=== PATIENT | female | born 1995 | race African-American/Black ===

== ENCOUNTER 2018-07-16 06:13 | Emergency (ER) | payer OTHER ==
[2018-07-16] MEDS ORDERED: MORPHINE 2 MG/ML SYR ONE (06:54)
[2018-07-16] MEDS ORDERED: ONDANSETRON 4 MG/2 ML VIAL ONE (06:54)
[2018-07-16 07:08] LABS: Absolute Lymphocytes (CBC) 1.2 K/uL (0.7-4.9); Absolute Monocytes 1.5 K/uL (0.1-1.3); Absolute Neutrophil 13.4 K/uL (1.8-8.0); Basophils % 0.3 % (0-1.3); Eosinophils % 0.1 % (0-4.4); Hematocrit 39.7 % (36.0-45.0); Lymphocytes % 7.6 % (15.3-44.8); MPV 8.2 fL (7.6-11.3); Monocytes % 9.3 % (3.3-12.3); RBC Red Blood Cell Count 4.54 M/uL (3.86-4.86)
[2018-07-16 07:18] LABS: ALT/SGPT 17 U/L (12-78); AST/SGOT 14 U/L (15-37); Albumin 3.8 g/dL (3.4-5.0); Alkaline Phosphatase 63 U/L (45-117); BUN Blood Urea Nitrogen 7 mg/dL (7-18); Bicarbonate 24 mmol/L (21-32); Bilirubin Direct 0.1 mg/dL (0-0.2); Bilirubin Total 0.4 mg/dL (0.2-1.0); Glucose Level 113 mg/dL (74-106); Lipase 54 U/L (73-393); Potassium 3.7 mmol/L (3.5-5.1); Protein, Total 7.8 g/dL (6.4-8.2); Sodium Level 138 mmol/L (136-145)
--- NOTE | 2018-07-16 08:32 | RAD REPORT ---
EXAM DESCRIPTION: CTAbdomen Pelvis W Contrast - 07/16/2018 8:23 am CLINICAL HISTORY: Abdominal pain. abdominal pain, IV ONLY COMPARISON: No comparisons TECHNIQUE: Biphasic CT imaging of the abdomen and pelvis was performed with 100 ml non-ionic IV cont rast. All CT scans are performed using dose optimization technique as appropriate and may include automated exposure control or mA/KV adjustment according to patient size. FINDINGS: The lung bases are clear. The liver, spleen, pancreas, adrenal glands and kidneys are within normal limits. No bowel obstruction, free air, free fluid or abscess. Few mildly thickened small bowel loops are not ed in the central abdomen. The appendix is normal. No evidence of significant lymphadenopathy. No suspicious bony findings. IMPRESSION: A few mildly thickened small bowel loops in the central abdomen suggests enteritis. Othe rwise, no acute abnormality is seen.
--- NOTE | 2018-07-16 08:53 | ER ---
Nurse's Notes [facility] Name: Rani Bautista Age: 23 yrs Sex: Female : 1995 Arrival Date: 07/16/2018 Time: :19 Bed 13 Private MD: Diagnosis: Unspecified abdominal pain;Urinary tract infection, site not specified Presentation: 07/16 06:29 Presenting complaint: Patient states: right lower abd pain and SOB with lying down ak1 since yesterday. pt denies N/V/D. Transition of care: patient was not received from another setting of care. Onset of symptoms was July 15, 2018. Risk Assessment: Do you want to hurt yourself or someone else? Patient reports no desire to harm self or others. Initial Sepsis Screen: Does the patient meet any 2 criteria? No. Patient's initial sepsis screen is negative. Does the patient have a suspected source of infection? No. Patient's initial sepsis screen is negative. Care prior to arrival: None. 06:29 Method Of Arrival: Ambulatory ak1 06:29 Acuity: DIAMOND 3 ak1 Triage Assessment: 06:30 General: Appears uncomfortable, slender, Behavior is calm, cooperative. Pain: Complains ak1 of pain in abdomen. EENT: No signs and/or symptoms were reported regarding the EENT system. Neuro: No deficits noted. Cardiovascular: No deficits noted. Respiratory: No deficits noted. GI: Abdomen is round. : No signs and/or symptoms were reported regarding the genitourinary system. Derm: No signs and/or symptoms reported regarding the dermatologic system. Musculoskeletal: No signs and/or symptoms reported regarding the musculoskeletal system. 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 - Social history:: Smoking status: Patient uses tobacco products, smokes one-half pack cigarettes per day. - Ebola Screening: : No symptoms or risks identified at this time. Screenin:31 Abuse screen: Denies threats or abuse. Denies injuries from another. Nutritional ak1 screening: No deficits noted. Tuberculosis screening: No symptoms or risk factors identified. Fall Risk None identified. Assessment: 06:32 Reassessment: Patient appears in no apparent distress at this time. No changes from ak1 previously documented assessment. see triage assessment. 06:32 GI: Bowel sounds present X 4 quads. Abdomen is tender to palpation X 4 quads. ak1 07:00 General: Appears in no apparent distress. comfortable, Behavior is calm, cooperative. rb1 Pain: Complains of pain in abdomen Pain currently is 7 out of 10 on a pain scale. 07:00 Neuro: Level of Consciousness is awake, alert, obeys commands, Oriented to person, rb1 place, time, situation. Cardiovascular: Capillary refill < 3 seconds is brisk in bilateral fingers. Respiratory: Airway is patent Respiratory effort is even, unlabored, Respiratory pattern is regular, symmetrical. GI: Bowel sounds present X 4 quads. : No signs and/or symptoms were reported regarding the genitourinary system. Derm: Skin is dry, Skin is normal, Skin temperature is warm. 08:00 Reassessment: Patient appears in no apparent distress at this time. Patient and/or rb1 family updated on plan of care and expected duration. Pain level reassessed. Patient is alert, oriented x 3, equal unlabored respirations, skin warm/dry/pink. Friend at bedside. 09:00 Reassessment: Patient appears in no apparent distress at this time. No changes from rb1 previously documented assessment. Pain 5/10. Vital Signs: 06:30 BP 127 / 71; Pulse 104; Resp 18; Temp 99.1(O); Pulse Ox 99% on R/A; Weight 56.7 kg (R); ak1 Height 5 ft. 2 in. (157.48 cm) (R); Pain 10/10; 07:00 BP 123 / 77; Pulse 81; Resp 19; Pulse Ox 100% on R/A; rb1 08:00 BP 123 / 74; Pulse 63; Resp 15; Pulse Ox 100% on R/A; rb1 09:00 BP 101 / 56; Pulse 64; Resp 17; Pulse Ox 99% on R/A; rb1 06:30 Body Mass Index 22.86 (56.70 kg, 157.48 cm) ak1 ED Course: 06:19 Patient arrived in ED. es 06:23 Debra Alexander, RN is Primary Nurse. ak1 06:24 Mickail, Víctor, PA is PHCP. [facility] 06:24 Oliverio Huertas MD is Attending Physician. [facility] 06:30 Triage completed. ak1 06:30 Arm band placed on Patient placed in an exam room, on a stretcher, on pulse oximetry, ak1 Patient notified of wait time. 06:31 Patient has correct armband on for positive identification. Bed in low position. Call ak1 light in reach. Side rails up X 1. Pulse ox on. NIBP on. 06:53 Initial lab(s) drawn, by me, sent to lab. Urine collected: clean catch specimen, clear, ak1 sent to lab. Inserted saline lock: 20 gauge in right antecubital area, using aseptic technique. Blood collected. 08:23 CT completed. Patient tolerated procedure well. Patient moved to CT via wheelchair. Patient moved back from CT. 08:24 CT Abd/Pelvis - W/Contrast In Process Unspecified. EDMS 09:05 No provider procedures requiring assistance completed. IV discontinued, intact, rb1 bleeding controlled, No redness/swelling at site. Pressure dressing applied. Administered Medications: 06:52 Drug: morphine 2 mg Route: IVP; Site: right antecubital; ak1 06:55 Follow up: Response: No adverse reaction ak1 06:52 Drug: Zofran 4 mg Route: IVP; Site: right antecubital; ak1 06:54 Follow up: Response: No adverse reaction ak1 Outcome: 08:52 Discharge ordered by . [facility] 09:05 Discharged to home ambulatory, with friend. rb1 09:05 Condition: stable 09:05 Discharge instructions given to patient, Instructed on discharge instructions, follow up and referral plans. medication usage, Demonstrated understanding of instructions, follow-up care, medications, Prescriptions given X 4. 09:06 Patient left the ED. rb1 Signatures: Dispatcher [employer] EDMS Víctor Ulloa PA PA [facility] Pascale Thomas Susan sj Krenek, Amber RN RN ak1 Carol Kang, RN RN rb1 Corrections: (The following items were deleted from the chart) 07:34 07:00 Pain: Complains of pain in abdomen rb1 rb1
--- NOTE | 2018-07-16 08:53 | EDPHYS ---
Physician Documentation [facility] Name: Rani Bautista Age: 23 yrs Sex: Female : 1995 Arrival Date: 07/16/2018 Time: 06:19 Bed 13 Private MD: ED Physician Oliverio Huertas HPI: 07/16 06:37 This 23 yrs old Black Female presents to ER via Ambulatory with complaints of Abdominal jmm Pain, Flank Pain, Shoulder Pain, Breathing Difficulty. 06:37 The patient presents with abdominal pain that is diffuse. Onset: The symptoms/episode jmm began/occurred gradually, yesterday. The symptoms do not radiate. Associated signs and symptoms: Pertinent negatives: fever, vomiting. This is a 23 year old female with no chronic medical conditions that presents to the ED with generalized abdominal pain, right flank pain. Denies fever, denies vomiting, diarrhea. Denies recent travel. . 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 - Social history:: Smoking status: Patient uses tobacco products, smokes one-half pack cigarettes per day. - Ebola Screening: : No symptoms or risks identified at this time. ROS: 06:37 Constitutional: Negative for fever, chills, and weight loss, Cardiovascular: Negative jmm for chest pain, palpitations, and edema, Respiratory: Negative for shortness of breath, cough, wheezing, and pleuritic chest pain. 06:37 Abdomen/GI: Positive for abdominal pain. 06:37 Back: Positive for flank pain, on the right. 06:37 All other systems are negative. Exam: 06:37 Constitutional: This is a well developed, well nourished patient who is awake, alert, jmm and in no acute distress. Head/Face: atraumatic. Eyes: EOMI, no conjunctival erythema appreciated ENT: Moist Mucus Membranes Neck: Trachea midline, Supple Chest/axilla: Normal chest wall appearance and motion. Cardiovascular: Regular rate and rhythm. No edema appreciated Respiratory: Normal respirations, no respiratory distress appreciated 06:37 Skin: General appearance color normal MS/ Extremity: Moves all extremities, no obvious deformities appreciated, no edema noted to the lower extremities Neuro: Awake and alert, normal gait Psych: Behavior is normal, Mood is normal, Patient is cooperative and pleasant 06:37 Abdomen/GI: Inspection: abdomen appears normal, Bowel sounds: normal, Palpation: soft, moderate abdominal tenderness, in all quadrants. 06:37 Back: ROM is normal. 06:37 : CVA tenderness, on the right. Vital Signs: 06:30 BP 127 / 71; Pulse 104; Resp 18; Temp 99.1(O); Pulse Ox 99% on R/A; Weight 56.7 kg (R); ak1 Height 5 ft. 2 in. (157.48 cm) (R); Pain 10/10; 07:00 BP 123 / 77; Pulse 81; Resp 19; Pulse Ox 100% on R/A; rb1 08:00 BP 123 / 74; Pulse 63; Resp 15; Pulse Ox 100% on R/A; rb1 09:00 BP 101 / 56; Pulse 64; Resp 17; Pulse Ox 99% on R/A; rb1 06:30 Body Mass Index 22.86 (56.70 kg, 157.48 cm) ak1 MDM: 06:26 Patient medically screened. [facility] 08:51 Data reviewed: vital signs, nurses notes, lab test result(s), radiologic studies, CT [facility] scan. Counseling: I had a detailed discussion with the patient and/or guardian regarding: the historical points, exam findings, and any diagnostic results supporting the discharge/admit diagnosis, lab results, radiology results, the need for outpatient follow up, to return to the emergency department if symptoms worsen or persist or if there are any questions or concerns that arise at home. ED course: Patient is alert and non toxic in appearance in the ED. CT reviewed. Patient given early appendicitis return precautions. Patient understood and agrees with the plan of care. . 07/16 06:46 Order name: Urine Dipstick--Ancillary (enter results) [facility] 07/16 06:35 Order name: CT Abd/Pelvis - W/Contrast; Complete Time: 08:36 [facility] 07/16 06:46 Order name: Urine --Ancillary (enter results) [facility] 07/16 06:54 Order name: Urine Microscopic Only [facility] 07/16 06:58 Order name: Basic Metabolic Panel; Complete Time: 07:26 [facility] 07/16 06:58 Order name: Liver (Hepatic) Function; Complete Time: 07:26 [facility] 07/16 06:58 Order name: Lipase; Complete Time: 07:26 [facility] 07/16 06:58 Order name: CBC with Automated Diff; Complete Time: 07:14 [facility] 07/16 06:34 Order name: IV Saline Lock; Complete Time: 06:52 [facility] 07/16 06:34 Order name: Labs collected and sent; Complete Time: 06:52 [facility] 07/16 06:34 Order name: Urine Dipstick-Ancillary (obtain specimen); Complete Time: 06:41 [facility] 07/16 06:34 Order name: Urine Test (obtain specimen); Complete Time: 06:41 [facility] Administered Medications: 06:52 Drug: morphine 2 mg Route: IVP; Site: right antecubital; ak1 06:55 Follow up: Response: No adverse reaction ak1 06:52 Drug: Zofran 4 mg Route: IVP; Site: right antecubital; ak1 06:54 Follow up: Response: No adverse reaction ak1 Disposition: 07/16/18 08:52 Discharged to Home. Impression: Unspecified abdominal pain, Urinary tract infection, site not specified. - Condition is Stable. - Discharge Instructions: Abdominal Pain, Adult. - Prescriptions for Zofran ODT 4 mg Oral tablet,disintegrating - place 1 tablet by TRANSLINGUAL route every 4 hours; 20 tablet. Bentyl 20 mg Oral Tablet - take 1 tablet by ORAL route every 6 hours As needed; 20 tablet. Keflex 500 mg Oral Capsule - take 1 capsule by ORAL route every 12 hours for 10 days; 20 capsule. Ultracet 37.5- 325 mg Oral Tablet - take 1 tablet by ORAL route every 6 hours - for up to 5 days; do not exceed 8 tablets per day.; 12 tablet. - Medication Reconciliation Form, Thank You Letter, Antibiotic Education, Prescription Opioid Use form. - Follow up: Private Physician; When: 2 - 3 days; Reason: Recheck today's complaints, Continuance of care, Re-evaluation by your physician. Signatures: Dispatcher [facility] V[facility]ctor Ulloa PA PA jmm Krenek, Amber RN RN ak1 Carol Kang, RN RN rb1 Corrections: (The following items were deleted from the chart) 08:53 08:52 07/16/2018 08:52 Discharged to Home. Impression: Unspecified abdominal pain. [facility] Condition is Stable. Forms are Medication Reconciliation Form, Thank You Letter, Antibiotic Education, Prescription Opioid Use. Follow up: Private Physician; When: 2 - 3 days; Reason: Recheck today's complaints, Continuance of care, Re-evaluation by your physician. [facility] 09:06 08:53 07/16/2018 08:52 Discharged to Home. Impression: Unspecified abdominal pain; rb1 Urinary tract infection, site not specified. Condition is Stable. Discharge Instructions: Abdominal Pain, Adult. Prescriptions for Zofran ODT 4 mg Oral tablet,disintegrating - place 1 tablet by TRANSLINGUAL route every 4 hours; 20 tablet, Bentyl 20 mg Oral Tablet - take 1 tablet by ORAL route every 6 hours As needed; 20 tablet, Keflex 500 mg Oral Capsule - take 1 capsule by ORAL route every 12 hours for 10 days; 20 capsule, Ultracet 37.5-325 mg Oral Tablet - take 1 tablet by ORAL route every 6 hours - for up to 5 days; do not exceed 8 tablets per day.; 12 tablet. and Forms are Medication Reconciliation Form, Thank You Letter, Antibiotic Education, Prescription Opioid Use. Follow up: Private Physician; When: 2 - 3 days; Reason: Recheck today's complaints, Continuance of care, Re-evaluation by your physician. jc
[2018-07-16 09:19] LABS: Urine Blood NEGATIVE (NEG); Urine Glucose NEGATIVE (NEG); Urine Protein NEGATIVE (NEG); Urine Specific Gravity 1.015 (1.005-1.030)
[2018-07-16 09:38] LABS: Urine Bacteria 20-50 /HPF (<20); Urine Culture Reflex Order NOT NEEDED; Urine RBC 20-50 /HPF (NONE SEEN)
== END 2018-07-16 09:06 | disposition home or self-care (01) ==
LOC: ER 06:13
DX: N39.0 Urinary tract infection, site not specified (principal); F17.210 Nicotine dependence, cigarettes, uncomplicated
CPT/HCPCS: 36415; 74177; 80048; 80076; 81003; 81015; 81025; 83690; 85025; 96374; 96375; 99284; J2270; J2405; Q9967

== ENCOUNTER 2018-09-21 15:06 | Emergency (ER) | payer OTHER ==
--- OUTSIDE RECORDS SUMMARY | 2018-09-21 15:08 | XMS REPORT ---
:1995 [facility] Address [address] [place] [address] Dr. Aponte [address] [place] [id number] Care Team Providers Name Role Phone Unavailable Unavailable Unavailable Problems This patient has no known problems. Allergies, Adverse Reactions, Alerts This patient has no known allergies or adverse reactions. Medications This patient has no known medications. Encounters Start End Encounter Admission Attending Care Care Encounter Date/Time Date/Time Type Type Clinicians Facility Department ID 2018-02-18 2018-02-18 Outpatient [facility] [id number] 00:00:00 00:00:00
[2018-09-21] MEDS ORDERED: TETANUS & DIPHTHERIA TOX,ADULT 0.5 ML VIAL ONE (16:06)
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
[2018-09-21 17:30] LABS: Urine Blood NEGATIVE (NEG); Urine Glucose NEGATIVE (NEG); Urine Protein NEGATIVE (NEG); Urine pH 5.5 (5.0-7.0)
== END 2018-09-21 17:24 | disposition home or self-care (01) ==
LOC: ER 15:06
DX: S00.511A Abrasion of lip, initial encounter (principal); Y09 Assault by unspecified means; J01.90 Acute sinusitis, unspecified; Z23 Encounter for immunization; Z72.0 Tobacco use
CPT/HCPCS: 70450; 72125; 81003; 81025; 90471; 90714; 99283